=== PATIENT | male | born 1970 ===

== ENCOUNTER 2021-06-09 14:28 | Emergency (ER) | payer BC ==
[2021-06-09] MEDS ORDERED: Sodium Chloride 0.9% 20 ML SDV IV PRN (14:35)
[2021-06-09] MEDS ORDERED: Sodium Chloride 0.9% 10 ML Syringe FLUSH PRN (14:35)
[2021-06-09] MEDS ORDERED: Ondansetron 4 MG/2 ML SDV IVPUSH ONE (14:35)
[2021-06-09] MEDS ORDERED: Sodium Chloride 0.9% 2.5 ML Syringe FLUSH PRN (14:35)
[2021-06-09] MEDS ORDERED: Meclizine 25 MG Tab PO ONE (14:45)
--- NOTE | 2021-06-09 14:45 | EDM.PDOC ---
ED HPI GENERAL MEDICAL PROBLEM - General Chief Complaint: Syncope Stated Complaint: EMS Time Seen by Provider: 06/09/21 14:35 - History of Present Illness INITIAL COMMENTS - FREE TEXT/NARRATIVE: HISTORY AND PHYSICAL: History of present illness: This is a 50-year-old gentleman with a history significant for parathyroid disease, hypoparathyroidism who presents to the ER today secondary to vertigo and dizziness that started approximately 30 minutes prior to arrival. Patient presented to the ED as a stroke alert. Patient reports he has had episodes of vertigo in the past but today's episode was much more severe than usual. Patient denies any weakness to his upper or lower extremities. Patient has any double vision or blurred vision. Patient reports that he did have a short episode where he thought his words were slightly slurred but that was extremely transient and currently resolved. Patient denies any facial drooping or asymmetry. Patient denies any paresthesias to his upper or lower extremities. Patient reports nausea and vomiting secondary to dizziness when he opens his eyes. Patient reports he did eat a brownie prior to arrival to the ED as he was vomiting up some dark brown material upon arrival. Patient denies any recent fevers, shakes, chills, diarrhea, dysuria, frequency, urgency. Patient has any chest pain or abdominal pain. Patient has any hematuria. Patient denies any melena or bright red blood per rectum. Patient reports has been tolerating p.o. solids and liquids well. Patient reports prior to this episode he was in his usual state of health. Review of systems: As per history of present illness and below otherwise all systems reviewed and negative. Past medical history: As per history of present illness and as reviewed below otherwise noncontributory. Surgical history: As per history of present illness and as reviewed below otherwise noncontributory. Social history: No reported history of drug abuse. Family history: As per history of present illness and as reviewed below otherwise noncontributory. Physical exam: This patient was seen and evaluated during the 2019 SARS-CoV-2 novel coronavirus pandemic period. Community viral transmission is ongoing at time of this encounter and the emergency department is operating under pandemic response procedures. Constitutional: Patient is oriented to person, place, and time. Appears well- developed and well-nourished. No distress. HEENT: Moist mucous membranes Head: Normocephalic and atraumatic Eyes: Right eye exhibits no discharge. Left eye exhibits no discharge. No scleral icterus Neck: Normal range of motion. No tracheal deviation present. Cardiovascular: Normal rate and regular rhythm. Pulmonary: Effort normal, no respiratory distress. Abdominal: No distention Musculoskeletal: Normal range of motion Neuro: A&Ox3. Cranial nerves II-XII grossly intact, 5/5 strength to bilateral upper and lower extremities, sensation intact to bilateral upper and lower extremities, no nystagmus, PERRLA, EOMI, normal speech, proprioception intact to bilateral lower extremities, normal finger to nose test, gait normal skin: [place], warm and dry. Psychiatric: Normal mood and affect. Behavior is normal. Judgment and thought content normal. Nursing note and vital signs have been reviewed 1a) Level of consciousness: 0=alert; 1=not alert but arousable by minor stimulation; 2=not alert: requires repeated stimulation to attend or is obtunded and requires strong or painful stimulation to make movements; 3=responds only with reflex motor or autonomic effects or totally unresponsive, flaccid and a reflexic SCORE 00 1b) LOC questions ("what month is it?", "how old are you?"): 0=answers both correctly; 1=answers one correctly; 2=answers neither correctly SCORE 0 1c) LOC commands (command patient to "open and close your eyes. Melter Operator and release your hand.): 0=performs both correctly; 1=performs one correctly; 2=performs neither correctly SCORE 0 2) Best gaze ("follow my finger"): 0=normal; 1=partial gaze palsy; 2=forced deviation or total gaze paresis SCORE 0 3) Visual schrader (use confrontation, finger counting, or visual threat. confront upper/lower quadrants of visual field): 0=no visual loss; 1=partial hemianopsia; 2=complete hemianopsia; 3=bilateral hemianopsia SCORE 0 4) Facial palsy (by words or pantomime, encourage patient to: "Show me your teeth. Raise your eyebrows. Close your eyes."): 0=normal symmetrical movement; 1=minor paralysis (flattened nasolabial fold, asymmetry on smiling); 2=partial paralysis (lower face); 3=complete paralysis SCORE 0 5) Arm motor (alternately position patient's arms. extend each arm with palms down (90 degrees if sitting, 45 degrees if supine) - test each arm in turn and start with nonparetic arm first): 0=no drift; 1=drift (arm falls before 10 seconds); 2=some effort vs. gravity; 3=no effort vs. gravity; 4=no movement; UN (untestable)=amputation or joint fusion SCORE 0 6) Leg motor (alternately position patient's legs. extend each leg (30 degrees, always while supine) - test nonparetic leg first): 0=no drift; 1=drift (leg falls before 5 seconds); 2=some effort vs. gravity; 3= no effort vs. gravity; 4=no movement; UN=amputation or joint fusion SCORE 0 7) Limb ataxia (ask patient (eyes open) to: "touch your finger to your nose. touch your heel to your alcaraz"): 0=absent; 1=present in one limb; 2=present in two or more limbs; UN=amputation or joint fusion SCORE 0 8) Sensory (test as many body parts as possible (arms and not hands, legs, trunk, face) for sensation using pinprick or noxious stimuli (in the obtunded or aphasic patient)): 0=normal; 1=mild to moderate sensory loss; 2=severe to total sensory loss SCORE 0 9) Best language (using pictures and a sentence list, ask patient to "describe what you see in this picture. Name the items in this picture. Read these sentences"): 0=no aphasia, 1=mild to moderate aphasia; 2=severe aphasia; 3=mute, global aphasia SCORE 0 10) Dysarthria (using a simple word list, ask patient to: "read these words" or "repeat these words"): 0=normal articulation; 1=mild to moderate dysarthria; 2=severe dysarthria; UN=intubated or other physical barrier SCORE 0 11) Extinction and inattention (sufficient information to determine these scores may have been obtained during the prior testing): 0=no abnormality; 1=visual, tactile, auditory, spatial or personal inattention; 2=profound reymundo-inattention or extinction to more than one modality SCORE 0 TOTAL NIHSS Score: 0 Diagnostics: CT head: No acute bleed CTA head and neck: No evidence of arterial occlusion or dissection Therapeutics: Benadryl/meclizine/NSS/Zofran Assessment and plan: 50-year-old gentleman who presents ER today secondary to vertigo. Patient is clinically hemodynamically stable upon arrival to the ED was having episodes of emesis of dark brown material which she reports he believes is redness of the brownie that he ate prior to arrival to the ER. Patient's neuro exam is unremarkable. Patient's NIH stroke scale is 0. Patient has no nystagmus and normal cerebellar exam at this time. Patient has been given Zofran for his nausea and will be given IV fluids as well as meclizine and reevaluated. 4:54 PM: Patient has been reevaluated by me multiple times throughout his ER visit. Patient reports he feels significantly improved in the ED has been resting comfortably. Patient reports that his dizziness has completely resolved after sleeping in the ED. Patient has been able to get up out of bed on his own and utilize to facilities. Patient reports no vertigo or unstable gait. Paris valdes's neuro exam in the ED currently is normal. Patient has a normal [id number], rapid alternating motion, heel-to-toe walking, normal Romberg, no nystagmus. Patient was ambulated in the ED and he appears to be walking with stable gait and feels very comfortable with the plan to be discharged home at this time. At this time I do not believe that the patient's symptoms were consistent with a cerebellar infarct as a resolved shortly after receiving the meclizine, Benadryl and sleep. Although the possibility of a cerebellar TIA is unlikely, patient will get started on an aspirin a day and will be discharged home with instructions take a baby aspirin daily in order to prevent any further strokes and will get started on meclizine 50 mg 3 times a day as needed for vertigo. Patient will be instructed to follow-up with primary care physician for further evaluation. Reassessment at the time of disposition demonstrates that the patient is in no acute distress. The patient has remained stable throughout the entire ED visit and is without objective evidence for acute process requiring urgent intervention or hospitalization. The patient is stable for discharge, counseling is provided as documented above, discussed symptomatic treatment and specific conditions for return. I have spoken with the patient/caregiver and discussed todays findings, in addition to providing specific details for the plan of care. Questions are answered and there is agreement with the plan. Definitive disposition and diagnosis as appropriate pending reevaluation and review of above. - Related Data Allergies Allergy/AdvReac Type Severity Reaction Status Date / Time No Known Allergies Allergy Verified 06/09/21 14:31 Home Meds: Home Meds Levothyroxine Sodium PO ACBED 11/14/13 [History] Meclizine HCl 25 mg PO TID PRN #20 tablet 06/09/21 [Rx] Past Medical History - Past Health History Medical/Surgical History: Denies Medical/Surgical History ED ROS GENERAL - Review of Systems Review Of Systems: See Below ED EXAM, GENERAL - Physical Exam Exam: See Below #1 Interpretation EKG Date: 06/09/21 Time: : EKG Interpretation Comments: EKG: As interpreted by ER physician: [place]: Nonspecific ST-T wave abnormalities Normal axis No evidence of ST elevation TX Normal sinus rhythm heart rate of 72 Course - Vital Signs Last Recorded V/S: Last Vital Signs Temp 96.2 F L 06/09/21 14:32 Pulse 69 06/09/21 15:55 Resp 17 06/09/21 15:55 BP 130/77 06/09/21 15:55 Pulse Ox 97 06/09/21 15:55 - Orders/Labs/Meds Orders: Active Orders 24 hr Category Date Time Status Assess Neurological Status [RC] ASDIRECTED Care 06/09/21 14:36 Active Bedrest [RC] ASDIRECTED Care 06/09/21 14:36 Active Blood Glucose Check, Bedside [RC] STAT Care 06/09/21 14:36 Active Cardiac Monitoring [RC] . DIRECTED Care 06/09/21 14:36 Active EKG Documentation Completion [RC] STAT Care 06/09/21 14:36 Active Height and Weight [RC] UPON Care 06/09/21 14:36 Active Initiate Acute Stroke Protocol [RC] STAT Care 06/09/21 14:36 Active NIH Stroke Scale [RC] ASDIRECTED Care 06/09/21 14:36 Active Oxygen Therapy [RC] ASDIRECTED Care 06/09/21 14:36 Active Stroke Education, General [RC] Click to Edit Care 06/09/21 14:36 Active Vital Signs [RC] Q15M Care 06/09/21 14:36 Active UA W/MICROSCOPIC [URIN] Stat Lab 06/09/21 16:30 Results Sodium Chloride 0.9% [Normal Saline] Med 06/09/21 14:35 Active 10 ml IV ASDIRECTED PRN Sodium Chloride 0.9% [Saline Flush] Med 06/09/21 14:35 Active 10 ml FLUSH ASDIRECTED PRN Sodium Chloride 0.9% [Saline Flush] Med 06/09/21 14:35 Active 2.5 ml FLUSH ASDIRECTED PRN Peripheral IV Insertion Adult [OM.PC] Stat Ot 06/09/21 14:36 Ordered Peripheral IV Insertion Adult [OM.PC] Stat Ot 06/09/21 14:36 Ordered Medication Orders Sodium Chloride (Sodium Chloride 0.9% 10 Ml Syringe) 10 ml FLUSH ASDIRECTED PRN PRN Reason: Keep Vein Open Last Admin: 06/09/21 15:12 Dose: 10 ml Documented by: AURORA Sodium Chloride (Sodium Chloride 0.9% 2.5 Ml Syringe) 2.5 ml FLUSH ASDIRECTED PRN PRN Reason: Keep Vein Open Last Admin: 06/09/21 15:12 Dose: 2.5 ml Documented by: AURORA Sodium Chloride (Sodium Chloride 0.9% 20 Ml Sdv) 10 ml IV ASDIRECTED PRN PRN Reason: IV Use Last Admin: 06/09/21 15:14 Dose: 10 ml Documented by: AURORA Labs: Laboratory Tests 06/09/21 06/09/21 06/09/21 Range/Units 14:37 14:37 14:37 WBC 9.58 (4.0-11.0) K/uL RBC 4.94 (4.50-5.90) M/uL Hgb 16.1 (13.0-17.0) g/dL Hct 44.7 (38.0-50.0) % MCV 90.5 (80.0-98.0) fL MCH 32.6 H (27.0-32.0) pg MCHC 36.0 (31.0-37.0) g/dL RDW Std Deviation 41.9 (28.0-62.0) fl RDW Coeff of Ingrid 13 (11.0-15.0) % Plt Count 363 (150-400) K/uL MPV 9.70 (7.40-12.00) fL Neut % (Auto) 62.3 (48.0-80.0) % Lymph % (Auto) 26.1 (16.0-40.0) % [place] % (Auto) 8.9 (0.0-15.0) % Eos % (Auto) 2.3 (0.0-7.0) % Baso % (Auto) 0.4 (0.0-1.5) % Neut # (Auto) 6.0 H (1.4-5.7) K/uL Lymph # (Auto) 2.5 H (0.6-2.4) K/uL Crosby # (Auto) 0.9 H (0.0-0.8) K/uL Eos # (Auto) 0.2 (0.0-0.7) K/uL Baso # (Auto) 0.0 (0.0-0.1) K/uL Nucleated RBC % 0.0 /100WBC Nucleated RBCs # 0 K/uL INR 1.00 APTT 23.5 (18.6-31.3) SEC Sodium 141 (136-148) mmol/L Potassium 3.0 L (3.5-5.1) mmol/L Chloride 102 (98-107) mmol/L Carbon Dioxide 26.5 (21.0-32.0) mmol/L BUN 15 (7.0-18.0) mg/dL Creatinine 0.9 (0.8-1.3) mg/dL Est Cr Clr Drug Dosing 112.90 mL/min Estimated GFR (MDRD) > 60.0 ml/min Glucose 116 H (74-106) mg/dL Calcium 8.5 (8.5-10.1) mg/dL Total Bilirubin 1.0 (0.2-1.0) mg/dL AST 23 (15-37) IU/L ALT 37 (14-63) IU/L Alkaline Phosphatase 93 (46-116) U/L Troponin I < 0.050 (0.000-0.056) ng/mL Total Protein 7.8 (6.4-8.2) g/dL Albumin 3.5 (3.4-5.0) g/dL Globulin 4.3 H (2.6-4.0) g/dL Albumin/Globulin Ratio 0.8 L (0.9-1.6) TSH, Ultra Sensitive 0.69 (0.36-3.74) uIU/mL Urine Color Urine Appearance Urine pH (5.0-8.0) Ur Specific [place] (1.001-1.035) Urine Protein (NEGATIVE) mg/dL Urine Glucose (UA) (NEGATIVE) mg/dL Urine Ketones (NEGATIVE) mg/dL Urine Occult Blood (NEGATIVE) Urine Nitrite (NEGATIVE) Urine Bilirubin (NEGATIVE) Urine Urobilinogen (<2.0) EU/dL Ur Leukocyte Esterase (NEGATIVE) SARS-CoV-2 RNA (BHANU) (NEGATIVE) 06/09/21 06/09/21 Range/Units 15:19 16:30 WBC (4.0-11.0) K/uL RBC (4.50-5.90) M/uL Hgb (13.0-17.0) g/dL Hct (38.0-50.0) % MCV (80.0-98.0) fL MCH (27.0-32.0) pg MCHC (31.0-37.0) g/dL RDW Std Deviation (28.0-62.0) fl RDW Coeff of Ingrid (11.0-15.0) % Plt Count (150-400) K/uL MPV (7.40-12.00) fL Neut % (Auto) (48.0-80.0) % Lymph % (Auto) (16.0-40.0) % Cros[place] % (Auto) (0.0-15.0) % Eos % (Auto) (0.0-7.0) % Baso % (Auto) (0.0-1.5) % Neut # (Auto) (1.4-5.7) K/uL Lymph # (Auto) (0.6-2.4) K/uL [place] # (Auto) (0.0-0.8) K/uL Eos # (Auto) (0.0-0.7) K/uL Baso # (Auto) (0.0-0.1) K/uL Nucleated RBC % /100WBC Nucleated RBCs # K/uL INR APTT (18.6-31.3) SEC Sodium (136-148) mmol/L Potassium (3.5-5.1) mmol/L Chloride (98-107) mmol/L Carbon Dioxide (21.0-32.0) mmol/L BUN (7.0-18.0) mg/dL Creatinine (0.8-1.3) mg/dL Est Cr Clr Drug Dosing mL/min Estimated GFR (MDRD) ml/min Glucose (74-106) mg/dL Calcium (8.5-10.1) mg/dL Total Bilirubin (0.2-1.0) mg/dL AST (15-37) IU/L ALT (14-63) IU/L Alkaline Phosphatase (46-116) U/L Troponin I (0.000-0.056) ng/mL Total Protein (6.4-8.2) g/dL Albumin (3.4-5.0) g/dL Globulin (2.6-4.0) g/dL Albumin/Globulin Ratio (0.9-1.6) TSH, Ultra Sensitive (0.36-3.74) uIU/mL Urine Color YELLOW Urine Appearance CLEAR Urine pH 6.5 (5.0-8.0) Ur Specific [place] 1.020 (1.001-1.035) Urine Protein TRACE H (NEGATIVE) mg/dL Urine Glucose (UA) NEGATIVE (NEGATIVE) mg/dL Urine Ketones NEGATIVE (NEGATIVE) mg/dL Urine Occult Blood NEGATIVE (NEGATIVE) Urine Nitrite NEGATIVE (NEGATIVE) Urine Bilirubin NEGATIVE (NEGATIVE) Urine Urobilinogen 0.2 (<2.0) EU/dL Ur Leukocyte Esterase NEGATIVE (NEGATIVE) SARS-CoV-2 RNA (BHANU) NEGATIVE (NEGATIVE) Meds: Medications Generic Name Dose Route Start Last Admin Trade Name Freq PRN Reason Stop Dose Admin Sodium Chloride 10 ml 06/09/21 14:35 06/09/21 15:12 Sodium Chloride 0.9% 10 Ml Syringe FLUSH 10 ml ASDIRECTED PRN Administration Keep Vein Open Sodium Chloride 2.5 ml 06/09/21 14:35 06/09/21 15:12 Sodium Chloride 0.9% 2.5 Ml Syringe FLUSH 2.5 ml ASDIRECTED PRN Administration Keep Vein Open Sodium Chloride 10 ml 06/09/21 14:35 06/09/21 15:14 Sodium Chloride 0.9% 20 Ml Sdv IV 10 ml ASDIRECTED PRN Administration IV Use Discontinued Medications Generic Name Dose Route Start Last Admin Trade Name Freq PRN Reason Stop Dose Admin Diphenhydramine HCl 50 mg 06/09/21 14:46 06/09/21 15:06 Diphenhydramine 50 Mg/Ml Sdv IVPUSH 06/09/21 14:47 50 mg ONETIME ONE Administration Sodium Chloride 1,000 mls @ 999 mls/hr 06/09/21 15:13 06/09/21 15:14 Normal Saline IV 06/09/21 16:13 999 mls/hr .Bolus ONE Administration Iopamidol 100 ml 06/09/21 15:04 06/09/21 15:05 Iopamidol 755 Mg/Ml 500 Ml Multipack Bottle IVPUSH 06/09/21 15:05 100 ml ONETIME STA Administration Meclizine HCl 50 mg 06/09/21 14:45 06/09/21 15:06 Meclizine 25 Mg Tab PO 06/09/21 14:46 50 mg ONETIME ONE Administration Ondansetron HCl 4 mg 06/09/21 14:35 06/09/21 15:06 Ondansetron 4 Mg/2 Ml Sdv IVPUSH 06/09/21 14:36 4 mg ONETIME ONE Administration Departure - Departure Time of Disposition: 16:57 Disposition: Home, Self-Care 01 Condition: Good Clinical Impression: Vertigo, Vomiting - Discharge Information Instructions: Vertigo, [id number] Forms: ED Department Discharge Additional Instructions: You were seen and evaluated in ER today secondary to acute onset of vertigo. The evaluation that was performed in the ED makes it extremely unlikely that this was secondary to a stroke but more the likely secondary to vertigo from an inner ear/vestibular issue. You were given meclizine here in the ED to assist with the symptoms and you will be discharged with a prescription for meclizine to take as needed if you should have further episodes of vertigo. Given your risk factors, I recommend that you take an aspirin 81 mg daily to prevent str okes and heart disease. You need to talk to your doctor about being placed on a weight loss program. Please return to the ER if you develop any new or concerning symptoms. The following information is given to patients seen in the emergency department who are being discharged to home. This information is to outline your options for follow-up care. We provide all patients seen in our emergency department with a follow-up referral. The need for follow-up, as well as the timing and circumstances, are variable depending upon the specifics of your emergency department visit. If you don't have a primary care physician on staff, we will provide you with a referral. We always advise you to contact your personal physician following an emergency department visit to inform them of the circumstance of the visit and for follow-up with them and/or the need for any referrals to a consulting specialist. The emergency department will also refer you to a specialist when appropriate. This referral assures that you have the opportunity for follow-up care with a specialist. All of these measure are taken in an effort to provide you with optimal care, which includes your follow-up. Under all circumstances we always encourage you to contact your private physician who remains a resource for coordinating your care. When calling for follow-up care, please make the office aware that this follow-up is from your recent emergency room visit. If for any reason you are refused follow-up, please contact the [facility] Emergency Department at and asked to speak to the emergency department charge nurse. [facility] - Primary Care [address] [place] [address] [id number] [address] [id number] Sepsis Event Note (ED) - Focused Exam Vital Signs: Vital Signs Temp Pulse Resp BP Pulse Ox 06/09/21 15:55 69 17 130/77 97 06/09/21 15:08 66 17 166/77 H 92 L 06/09/21 14:32 96.2 F L 95 20 128/79 98 - My Orders Last 24 Hours: My Active Orders 06/09/21 14:35 Sodium Chloride 0.9% [Normal Saline] 10 ml IV ASDIRECTED PRN Sodium Chloride 0.9% [Saline Flush] 10 ml FLUSH ASDIRECTED PRN Sodium Chloride 0.9% [Saline Flush] 2.5 ml FLUSH ASDIRECTED PRN 06/09/21 14:36 Assess Neurological Status [RC] ASDIRECTED Bedrest [RC] ASDIRECTED Blood Glucose Check, Bedside [RC] STAT Cardiac Monitoring [RC] . DIRECTED EKG Documentation Completion [RC] STAT Height and Weight [RC] UPON Initiate Acute Stroke Protocol [RC] STAT NIH Stroke Scale [RC] ASDIRECTED Oxygen Therapy [RC] ASDIRECTED Stroke Education, General [RC] Click to Edit Vital Signs [RC] Q15M Peripheral IV Insertion Adult [OM.PC] Stat Peripheral IV Insertion Adult [OM.PC] Stat 06/09/21 16:30 UA W/MICROSCOPIC [URIN] Stat - Assessment/Plan Last 24 Hours: My Active Orders 06/09/21 14:35 Sodium Chloride 0.9% [Normal Saline] 10 ml IV ASDIRECTED PRN Sodium Chloride 0.9% [Saline Flush] 10 ml FLUSH ASDIRECTED PRN Sodium Chloride 0.9% [Saline Flush] 2.5 ml FLUSH ASDIRECTED PRN 06/09/21 14:36 Assess Neurological Status [RC] ASDIRECTED Bedrest [RC] ASDIRECTED Blood Glucose Check, Bedside [RC] STAT Cardiac Monitoring [RC] . DIRECTED EKG Documentation Completion [RC] STAT Height and Weight [RC] UPON Initiate Acute Stroke Protocol [RC] STAT NIH Stroke Scale [RC] ASDIRECTED Oxygen Therapy [RC] ASDIRECTED Stroke Education, General [RC] Click to Edit Vital Signs [RC] Q15M Peripheral IV Insertion Adult [OM.PC] Stat Peripheral IV Insertion Adult [OM.PC] Stat 06/09/21 16:30 UA W/MICROSCOPIC [URIN] Stat
[2021-06-09] MEDS ORDERED: diphenhydrAMINE 50 MG/ML SDV IVPUSH ONE (14:46)
[2021-06-09] MEDS ORDERED: Iopamidol 755 MG/ML 500 ML Multipack Bottle IVPUSH STA (15:04)
[2021-06-09] MEDS ORDERED: Sodium Chloride 0.9% 1,000 ML IV ONE (15:13)
[2021-06-09 15:25] LABS: BLOOD UREA NITROGEN,BUN 15 mg/dL (7.0-18.0); CARBON DIOXIDE,CO2 26.5 mmol/L (21.0-32.0); CHLORIDE,CL 102 mmol/L (98-107); GLUCOSE RANDOM 116 mg/dL (74-106); SODIUM,NA 141 mmol/L (136-148)
--- NOTE | 2021-06-09 15:32 | CR ---
Indication: Acute stroke Technique: Chest 1 view Comparison: None Findings/Impression: Prominent cardiac size. Normal pulmonary vasculature. No focal infiltrate, effusion or pneumothorax. No acute osseous abnormality. Dictated by Dasia Wright MD @ 06/09/2021 3:30:09 PM (Electronically Signed)
--- NOTE | 2021-06-09 15:32 | CT ---
DATE: 06/09/2021. CLINICAL HISTORY: Acute neurological deficit. TECHNIQUE: Standard helical CT image acquisition of the brain was performed. COMPARISON: None available. FINDINGS: There is no intracranial hemorrhage. No extra-axial collection, mass effect, or midline shift. Ponce-white matter differentiation is preserved. Mild age advanced generalized parenchymal volume loss. There is a delphine cisterna magnum. There is an empty and mildly expanded sella. The calvarium is unremarkable. The orbits are unremarkable. The paranasal sinuses are unremarkable. The mastoid air cells are unremarkable. The soft tissues are unremarkable. IMPRESSION: 1. No CT evidence of acute intracranial abnormality. 2. Mild age advanced generalized parenchymal volume loss. 3. Empty and mildly expanded sella. This is nonspecific but can be seen in the setting of underlying idiopathic intracranial hypertension. Please note that all CT scans at this facility use dose modulation, iterative reconstruction, and/or weight-based dosing when appropriate to reduce radiation dose to as low as reasonably achievable. Dictated by Drake Lopez MD @ 06/09/2021 3:31:31 PM (Electronically Signed)
--- NOTE | 2021-06-09 15:42 | CT ---
DATE: 06/09/2021. CLINICAL HISTORY: Acute neurological deficit. TECHNIQUE: Standard helical CT image acquisition through the head and neck was performed after intravenous contrast bolus enhancement. Multiplanar reconstructed images were performed and interpreted. COMPARISON: None available. FINDINGS: The origins of the great vessels from the aortic arch are patent. The origins of the right and left vertebral arteries are patent. The common carotid arteries are patent. No significant luminal stenoses of the proximal internal carotid arteries by NASCET criteria. The more distal cervical segments of the internal carotid arteries are patent. The cervical segments of the vertebral arteries are patent. No intracranial proximal large vessel occlusion or flow-limiting luminal stenosis. The visualized lung apices are unremarkable. The thyroid gland is unremarkable. The cervical spine is unremarkable. IMPRESSION: 1. No intracranial proximal large vessel occlusion or flow-limiting luminal stenosis. 2. Patent cervical arterial vasculature without hemodynamically significant luminal stenosis. Please note that all CT scans at this facility use dose modulation, iterative reconstruction, and/or weight-based dosing when appropriate to reduce radiation dose to as low as reasonably achievable. Dictated by Drake Lopez MD @ 06/09/2021 3:40:30 PM (Electronically Signed)
[2021-06-09] MEDS ORDERED: Aspirin 81 MG Tab.Chew PO ONE (16:56)
== END 2021-06-09 17:21 | disposition home or self-care (01) ==
LOC: MW.ED 14:28
DX: R42 Dizziness and giddiness (principal); R11.10 Vomiting, unspecified; Z79.899 Other long term (current) drug therapy; Z20.822 Contact with and (suspected) exposure to COVID-19
CPT/HCPCS: 36415; 70450; 70496; 70498; 71045; 80053; 81001; 84443; 84484; 85025; 85610; 85730; 87635; 96374; 96375; 99285; A9270; J1200; J2405; J7030; Q9967; U0002

== ENCOUNTER 2021-06-12 08:50 | Observation (INO) | payer BC ==
[2021-06-12] MEDS ORDERED: diphenhydrAMINE 50 MG/ML SDV IVPUSH ONE (09:11)
--- NOTE | 2021-06-12 09:18 | EDM.PDOC ---
ED HPI GENERAL MEDICAL PROBLEM - General Chief Complaint: Syncope Stated Complaint: VERTIGO Time Seen by Provider: 06/12/21 08:51 Source of Information: Reports: Patient History Limitations: Reports: No Limitations - History of Present Illness INITIAL COMMENTS - FREE TEXT/NARRATIVE: Patient is a 50-year-old male with a history of hypothyroidism presents today for dizziness. Patient was seen here few days ago for a similar region of dizziness. At that time he had a CT head which also CTA head and neck. Patient states that he was given meclizine and made him feel better however this morning he had dizziness and cannot take the meclizine due to the vomiting. He states feels like the room was spinning and it gets worse when he opens his eyes. States his niece is still to get better. He denies any other neurological symptoms has no other complaints. - Related Data Allergies Allergy/AdvReac Type Severity Reaction Status Date / Time No Known Allergies Allergy Verified 06/12/21 08:56 Home Meds: Home Meds Levothyroxine Sodium 150 mg PO DAILY 11/14/13 [History] Meclizine HCl 25 mg PO TID PRN #20 tablet 06/09/21 [Rx] Past Medical History - Past Health History Medical/Surgical History: Denies Medical/Surgical History Cardiovascular History: Reports: Hypertension Neurological History: Reports: Vertigo Other Neuro History: "vertigo" Endocrine/Metabolic History: Reports: Hypothyroidism Social & Family History - Family History Family Medical History: No Pertinent Family History - Tobacco Use Tobacco Use Status *Q: Never Tobacco User Second Hand Smoke Exposure: No - Caffeine Use Caffeine Use: Reports: Coffee, Energy Drinks, Soda - Recreational Drug Use Recreational Drug Use: No ED ROS GENERAL - Review of Systems Review Of Systems: See Below Constitutional: Reports: No Symptoms HEENT: Reports: No Symptoms Respiratory: Reports: No Symptoms Cardiovascular: Reports: No Symptoms Endocrine: Reports: No Symptoms GI/Abdominal: Reports: No Symptoms : Reports: No Symptoms Musculoskeletal: Reports: No Symptoms Skin: Reports: No Symptoms Neurological: Reports: Dizziness Psychiatric: Reports: No Symptoms Hematologic/Lymphatic: Reports: No Symptoms Immunologic: Reports: No Symptoms ED EXAM, NEURO - Physical Exam Exam: See Below Exam Limited By: No Limitations General Appearance: Alert, WD/WN, No Apparent Distress Eye Exam: Bilateral Eye: EOMI, PERRL Ears: Normal External Exam Nose: Normal Inspection Neck: Normal Inspection, Supple Respiratory/Chest: No Respiratory Distress Cardiovascular: Normal Peripheral Pulses, Regular Rate, Rhythm GI/Abdominal: Normal Bowel Sounds, Soft, Non-Tender Neurological: Alert, CN II-XII Intact, No Motor/Sensory Deficits, Oriented x 3 Extremities: Normal Inspection, Normal Range of Motion #1 Interpretation EKG Date: 06/12/21 Time: 08:53 Rhythm: Other (sinus jane) Rate (Beats/Min): 59 ST-T: Normal Course - Vital Signs Last Recorded V/S: Last Vital Signs Temp 97.1 F 06/12/21 08:56 Pulse 57 L 06/12/21 10:40 Resp 16 06/12/21 10:40 BP 163/84 H 06/12/21 10:40 Pulse Ox 93 L 06/12/21 10:40 - Orders/Labs/Meds Orders: Active Orders 24 hr Category Date Time Status Patient Status [ADT] Routine ADT 06/12/21 11:11 Ordered Labs: Laboratory Tests 06/12/21 06/12/21 Range/Units 08:54 08:54 WBC 6.41 (4.0-11.0) K/uL RBC 4.70 (4.50-5.90) M/uL Hgb 15.2 (13.0-17.0) g/dL Hct 42.5 (38.0-50.0) % MCV 90.4 (80.0-98.0) fL MCH 32.3 H (27.0-32.0) pg MCHC 35.8 (31.0-37.0) g/dL RDW Std Deviation 41.7 (28.0-62.0) fl RDW Coeff of Ingrid 13 (11.0-15.0) % Plt Count 317 (150-400) K/uL MPV 9.60 (7.40-12.00) fL Neut % (Auto) 63.9 (48.0-80.0) % Lymph % (Auto) 24.2 (16.0-40.0) % [place] % (Auto) 8.4 (0.0-15.0) % Eos % (Auto) 3.0 (0.0-7.0) % Baso % (Auto) 0.5 (0.0-1.5) % Neut # (Auto) 4.1 (1.4-5.7) K/uL Lymph # (Auto) 1.6 (0.6-2.4) K/uL [place] # (Auto) 0.5 (0.0-0.8) K/uL Eos # (Auto) 0.2 (0.0-0.7) K/uL Baso # (Auto) 0.0 (0.0-0.1) K/uL Nucleated RBC % 0.0 /100WBC Nucleated RBCs # 0 K/uL Sodium 142 (136-148) mmol/L Potassium 3.2 L (3.5-5.1) mmol/L Chloride 105 (98-107) mmol/L Carbon Dioxide 27.2 (21.0-32.0) mmol/L BUN 18 (7.0-18.0) mg/dL Creatinine 0.9 (0.8-1.3) mg/dL Est Cr Clr Drug Dosing 116.06 mL/min Estimated GFR (MDRD) > 60.0 ml/min Glucose 151 H (74-106) mg/dL Calcium 8.6 (8.5-10.1) mg/dL Phosphorus 2.9 (2.6-4.7) mg/dL Magnesium 1.7 L (1.8-2.4) mg/dL Total Bilirubin 1.4 H (0.2-1.0) mg/dL AST 21 (15-37) IU/L ALT 41 (14-63) IU/L Alkaline Phosphatase 82 (46-116) U/L Total Protein 7.5 (6.4-8.2) g/dL Albumin 3.4 (3.4-5.0) g/dL Globulin 4.1 H (2.6-4.0) g/dL Albumin/Globulin Ratio 0.8 L (0.9-1.6) Meds: Medications Discontinued Medications Generic Name Dose Route Start Last Admin Trade Name Freq PRN Reason Stop Dose Admin Diazepam 2.5 mg 06/12/21 10:06 06/12/21 10:39 Diazepam 10 Mg/2 Ml Syringe IVPUSH 06/12/21 10:07 Not Given ONETIME ONE Diazepam 5 mg 06/12/21 10:07 06/12/21 10:36 Diazepam 10 Mg/2 Ml Syringe IVPUSH 06/12/21 10:08 5 mg ONETIME ONE Administration Diphenhydramine HCl 50 mg 06/12/21 09:11 06/12/21 09:14 Diphenhydramine 50 Mg/Ml Sdv IVPUSH 06/12/21 09:12 50 mg ONETIME ONE Administration - Re-Assessments/Exams Free Text/Narrative Re-Assessment/Exam: 06/12/21 11:11 Patient still remains dizzy after he was given IV Benadryl and also IV Reglan. Will admit for symptomatic dizziness. Departure - Departure Time of Disposition: 11:12 Disposition: Refer to Observation Condition: Fair Clinical Impression: Vertigo - Discharge Information *PRESCRIPTION DRUG MONITORING PROGRAM REVIEWED*: Not Applicable *COPY OF PRESCRIPTION DRUG MONITORING REPORT IN PATIENT [place]: Not Applicable Forms: ED Department Discharge Sepsis Event Note (ED) - Evaluation Sepsis Screening Result: No Definite Risk - Focused Exam Vital Signs: Vital Signs Temp Pulse Resp BP Pulse Ox Pulse Ox 06/12/21 10:40 57 L 16 163/84 H 93 L 06/12/21 10:09 55 L 157/71 H 97 06/12/21 09:22 94 L 06/12/21 08:56 97.1 F 59 L 16 162/81 H 98 - My Orders Last 24 Hours: My Active Orders 06/12/21 11:11 Patient Status [ADT] Routine - Assessment/Plan Last 24 Hours: My Active Orders 06/12/21 11:11 Patient Status [ADT] Routine Plan: Patient is a 50-year-old male history of hypothyroidism presents today for dizziness. Seems to be peripheral on exam. Patient had a work-up this past week as well. States he cannot take his meclizine when he got dizzy today doing the vomiting. We will prescribe patient antihistamine to help out with his dizziness and reassess.
[2021-06-12 09:26] LABS: BLOOD UREA NITROGEN,BUN 18 mg/dL (7.0-18.0); CARBON DIOXIDE,CO2 27.2 mmol/L (21.0-32.0); CHLORIDE,CL 105 mmol/L (98-107); GLUCOSE RANDOM 151 mg/dL (74-106); POTASSIUM,K 3.2 mmol/L (3.5-5.1); SODIUM,NA 142 mmol/L (136-148)
--- NOTE | 2021-06-12 16:33 | PCM.HP.2 ---
H&P History of Present Illness - General Date of Service: 06/12/21 Admit Problem/Dx: Admission Diagnosis/Problem Admission Diagnosis/Problem Vertigo - History of Present Illness Initial Comments - Free Text/Narative: 50 yo male with pmh of hypothyrodisme and vertigo. PAtient reports he gets dizzy every few months. He had a severe episode of vertigo three days ago was seen in the ED and sent home. He presents again with dizziness. the dizziness goes away when he lays down and closes his eyes. He feels unstead on his feet and is unable to walke. - Related Data Allergies/Adverse Reactions: Allergies Allergy/AdvReac Type Severity Reaction Status Date / Time No Known Allergies Allergy Verified 06/12/21 14:20 Home Medications: Home Meds Levothyroxine Sodium 150 mg PO DAILY 11/14/13 [History] Meclizine HCl 25 mg PO TID PRN #20 tablet 06/09/21 [Rx] Past Medical History - Past Health History Medical/Surgical History: Denies Medical/Surgical History HEENT History: Reports: Impaired Vision Other HEENT History: wears glasses Cardiovascular History: Reports: Hypertension Other Cardiovascular History: hypertension - not treated Respiratory History: Reports: Sleep Apnea Neurological History: Reports: Vertigo Other Neuro History: "vertigo" Endocrine/Metabolic History: Reports: Hypothyroidism - Infectious Disease History Infectious Disease History: Reports: Chicken Pox - Past Surgical History Endocrine Surgical History: Reports: Parathyroidectomy Social & Family History - Family History Family Medical History: No Pertinent Family History - Tobacco Use Tobacco Use Status *Q: Never Tobacco User Second Hand Smoke Exposure: No - Caffeine Use Caffeine Use: Reports: Coffee, Energy Drinks, Soda, Tea - Recreational Drug Use Recreational Drug Use: No H&P Review of Systems - Review of Systems: Review Of Systems: Comprehensive ROS is negative, except as noted in HPI. Exam - Exam Exam: See Below - Vital Signs Vital Signs: Last Vital Signs Temp 35.8 C L 06/12/21 13:20 Pulse 60 06/12/21 13:20 Resp 18 06/12/21 13:20 BP 131/77 06/12/21 13:20 Pulse Ox 92 L 06/12/21 13:20 Weight: 205.568 kg - Exam General: Alert, Oriented HEENT: Mucosa Moist & [place] Neck: Supple Lungs: Clear to Auscultation, Normal Respiratory Effort Cardiovascular: Regular Rate, Regular Rhythm GI/Abdominal Exam: Normal Bowel Sounds, Soft, Non-Tender Extremities: Non-Tender, Pedal Edema (+1) Skin: Warm, Dry, Intact Neurological: Cranial Nerves Intact, Reflexes Equal Bilateral, Strength Equal Bilateral, Normal Tone, Sensation Intact, Other (bilateral nystagymis) - Patient Data Lab Results Last 24 hrs: Laboratory Results - last 24 hr 06/12/21 06/12/21 06/12/21 Range/Units 08:54 08:54 11:18 WBC 6.41 (4.0-11.0) K/uL RBC 4.70 (4.50-5.90) M/uL Hgb 15.2 (13.0-17.0) g/dL Hct 42.5 (38.0-50.0) % MCV 90.4 (80.0-98.0) fL MCH 32.3 H (27.0-32.0) pg MCHC 35.8 (31.0-37.0) g/dL RDW Std Deviation 41.7 (28.0-62.0) fl RDW Coeff of Ingrid 13 (11.0-15.0) % Plt Count 317 (150-400) K/uL MPV 9.60 (7.40-12.00) fL Neut % (Auto) 63.9 (48.0-80.0) % Lymph % (Auto) 24.2 (16.0-40.0) % [place] % (Auto) 8.4 (0.0-15.0) % Eos % (Auto) 3.0 (0.0-7.0) % Baso % (Auto) 0.5 (0.0-1.5) % Neut # (Auto) 4.1 (1.4-5.7) K/uL Lymph # (Auto) 1.6 (0.6-2.4) K/uL [place] # (Auto) 0.5 (0.0-0.8) K/uL Eos # (Auto) 0.2 (0.0-0.7) K/uL Baso # (Auto) 0.0 (0.0-0.1) K/uL Nucleated RBC % 0.0 /100WBC Nucleated RBCs # 0 K/uL Sodium 142 (136-148) mmol/L Potassium 3.2 L (3.5-5.1) mmol/L Chloride 105 (98-107) mmol/L Carbon Dioxide 27.2 (21.0-32.0) mmol/L BUN 18 (7.0-18.0) mg/dL Creatinine 0.9 (0.8-1.3) mg/dL Est Cr Clr Drug Dosing 116.06 mL/min Estimated GFR (MDRD) > 60.0 ml/min Glucose 151 H (74-106) mg/dL Calcium 8.6 (8.5-10.1) mg/dL Phosphorus 2.9 (2.6-4.7) mg/dL Magnesium 1.7 L (1.8-2.4) mg/dL Total Bilirubin 1.4 H (0.2-1.0) mg/dL AST 21 (15-37) IU/L ALT 41 (14-63) IU/L Alkaline Phosphatase 82 (46-116) U/L Total Protein 7.5 (6.4-8.2) g/dL Albumin 3.4 (3.4-5.0) g/dL Globulin 4.1 H (2.6-4.0) g/dL Albumin/Globulin Ratio 0.8 L (0.9-1.6) SARS-CoV-2 RNA (BHANU) NEGATIVE (NEGATIVE) Result Diagrams: 06/12/21 08:54 06/12/21 08:54 Sepsis Event Note - Evaluation Sepsis Screening Result: No Definite Risk - Focused Exam Vital Signs: Vital Signs Temp Pulse Resp BP Pulse Ox Pulse Ox 06/12/21 13:20 35.8 C L 60 18 131/77 92 L 06/12/21 12:09 61 16 138/81 97 06/12/21 11:39 56 L 165/87 H 96 06/12/21 10:40 57 L 16 163/84 H 93 L 06/12/21 10:09 55 L 157/71 H 97 06/12/21 09:22 94 L 06/12/21 08:56 36.2 C 59 L 16 162/81 H 98 Problem List Initiated/Reviewed/Updated: Yes Orders Last 24hrs: Active Orders 24 hr Category Date Time Status Patient Status [ADT] Routine ADT 06/12/21 11:11 Active Antiembolic Devices [RC] PER UNIT ROUTINE Care 06/12/21 16:28 Ordered Oxygen Therapy [RC] PRN Care 06/12/21 16:28 Ordered Up ad Vielka [RC] ASDIRECTED Care 06/12/21 16:28 Ordered VTE/DVT Education [RC] PER UNIT ROUTINE Care 06/12/21 16:28 Ordered Vital Signs [RC] Q4H Care 06/12/21 16:28 Ordered PT Evaluation and Treatment [CONS] Routine Cons 06/12/21 15:42 Active Regular Diet [DIET] Diet 06/12/21 Breakfast Ordered Brain w wo Cont [MR] Routine Exams 06/12/21 15:42 Ordered Levothyroxine Med 06/13/21 09:00 Ordered 150,000 mcg PO DAILY Meclizine [Antivert] Med 06/12/21 16:26 Ordered 25 mg PO TID PRN Ondansetron [Zofran] Med 06/12/21 16:28 Ordered 4 mg IVPUSH Q4H PRN Sequential Compression Device [OM.PC] Per Unit Routine Oth 06/12/21 16:28 Ordered Resuscitation Status Routine Resus Stat 06/12/21 16:28 Ordered Medication Orders Levothyroxine Sodium (Levothyroxine 150 Mcg Tab) 150,000 mcg PO DAILY DEBI Meclizine HCl (Meclizine 25 Mg Tab) 25 mg PO TID PRN PRN Reason: Dizziness Assessment/Plan Comment:: 50 yo male admitted due to severe symptoms of vertigo liekly BPPV. Will continue to monitor and consult PT.
[2021-06-12] MEDS ORDERED: Ondansetron 4 MG/2 ML SDV IVPUSH PRN (17:00)
[2021-06-13] MEDS ORDERED: Labetalol 100 MG/20 ML MDV IVPUSH ONE (08:02)
[2021-06-13] MEDS: Levothyroxine 100 MCG Tab PO SCH (09:28)
--- NOTE | 2021-06-13 13:59 | PCM.PN ---
- General Info Date of Service: 06/13/21 - Review of Systems Systems Review Comment:: patient reports severe vertigo, feeling nauseous when standing, He was able to walk a few feet with PT. His vertigo makes it feel like the room spins 90 degrees clockwise - Patient Data Vitals - Most Recent: Last Vital Signs Temp 36.4 C 06/13/21 12:00 Pulse 59 L 06/13/21 12:00 Resp 20 06/13/21 12:00 BP 140/70 06/13/21 12:00 Pulse Ox 98 06/13/21 12:00 Weight - Most Recent: 205.568 kg I&O - Last 24 Hours: Intake & Output 06/12/21 06/13/21 06/13/21 22:59 06:59 14:59 Output Total 950 2000 Balance -950 -2000 Med Orders - Current: Current Medications Levothyroxine Sodium (Levothyroxine 100 Mcg Tab) 200 mcg PO ACBREAKFAST DEBI Last Admin: 06/13/21 09:28 Dose: 200 mcg Documented by: Meclizine HCl (Meclizine 25 Mg Tab) 25 mg PO TID PRN PRN Reason: Dizziness Ondansetron HCl (Ondansetron 4 Mg/2 Ml Sdv) 4 mg IVPUSH Q4H PRN PRN Reason: Nausea Discontinued Medications Diazepam (Diazepam 10 Mg/2 Ml Syringe) 2.5 mg IVPUSH ONETIME ONE Stop: 06/12/21 10:07 Last Admin: 06/12/21 10:39 Dose: Not Given Documented by: Diazepam (Diazepam 10 Mg/2 Ml Syringe) 5 mg IVPUSH ONETIME ONE Stop: 06/12/21 10:08 Last Admin: 06/12/21 10:36 Dose: 5 mg Documented by: Diazepam (Diazepam 10 Mg/2 Ml Syringe) 5 mg IVPUSH ONETIME ONE Stop: 06/12/21 12:02 Last Admin: 06/12/21 12:06 Dose: 5 mg Documented by: Diphenhydramine HCl (Diphenhydramine 50 Mg/Ml Sdv) 50 mg IVPUSH ONETIME ONE Stop: 06/12/21 09:12 Last Admin: 06/12/21 09:14 Dose: 50 mg Documented by: Labetalol HCl (Labetalol 100 Mg/20 Ml Mdv) 20 mg IVPUSH ONETIME ONE; Protocol Stop: 06/13/21 08:03 - Exam General: Alert, Oriented Neck: Supple Lungs: Clear to Auscultation, Normal Respiratory Effort Cardiovascular: Regular Rate, Regular Rhythm GI/Abdominal Exam: Soft, Non-Tender, No Distention Extremities: Non-Tender, No Pedal Edema Skin: Warm, Dry, Intact Neurological: No New Focal Deficit - Patient Data Result Diagrams: 06/12/21 08:54 06/12/21 08:54 Sepsis Event Note - Evaluation Sepsis Screening Result: No Definite Risk - Focused Exam Vital Signs: Vital Signs Temp Pulse Resp BP Pulse Ox 06/13/21 12:00 36.4 C 59 L 20 140/70 98 06/13/21 08:08 36.4 C 60 19 140/70 97 06/13/21 04:00 36.5 C 63 16 147/75 H 97 - Problem List & Annotations (1) Vertigo SNOMED Code(s): 123905505 Code(s): R42 - DIZZINESS AND GIDDINESS Status: Acute Current Visit: Yes - Problem List Review Problem List Initiated/Reviewed/Updated: Yes - My Orders Last 24 Hours: My Active Orders 06/12/21 14:14 Telemetry Monitoring [Cardiac Monitoring] [RC] . DIRECTED 06/12/21 15:42 PT Evaluation and Treatment [CONS] Routine 06/12/21 16:26 Meclizine [Antivert] 25 mg PO TID PRN 06/12/21 16:28 Antiembolic Devices [RC] PER UNIT ROUTINE Oxygen Therapy [RC] PRN Up ad Vielka [RC] ASDIRECTED VTE/DVT Education [RC] PER UNIT ROUTINE Vital Signs [RC] Q4H Sequential Compression Device [OM.PC] Per Unit Routine Resuscitation Status Routine 06/12/21 16:32 Cardiac Monitoring [RC] Q8H 06/12/21 16:57 CPAP Noctural Home [RT BiPAP/CPAP] [RC] ASDIRECTED 06/12/21 17:00 Ondansetron [Zofran] 4 mg IVPUSH Q4H PRN 06/13/21 07:30 Levothyroxine [Synthroid] 200 mcg PO ACBREAKFAST - Plan Plan:: 50 yo male admitted due to severe symptoms of vertigo. He has had episodic vertigo in the past so this is likely BPPV. Will continue to monitor and consult PT. antiemetics prn.
[2021-06-13] MEDS: Meclizine 25 MG Tab PO PRN ×2 (14:06→21:00)
[2021-06-14] MEDS: Levothyroxine 100 MCG Tab PO SCH (07:42)
--- NOTE | 2021-06-14 12:27 | PCM.DCSUM1 ---
Discharge Summary - Discharge Data Discharge Date: 06/14/21 Discharge Disposition: Home, Self-Care 01 Condition: Good - Referral to Home Health Primary Care Physician: Solitario Gutierrez MD - Patient Summary/Data Consults: Consultations 06/12/21 15:42 PT Evaluation and Treatment [CONS] Routine Hospital Course: 50 yo male with pmh of hypothyroidism and episodic vertigo. Patient reports he gets dizzy every few months. He had a severe episode of vertigo three days before this admission and was seen in the ED and had a unremarkable CT head. He presented again with dizziness. As he was unable to walk he was admitted for further care. Physical therapy was consulted. He did have improvement in his symptoms and today he is ready for discharge home. He is to follow up with Dr. Gutierrez next week. - Patient Instructions Diet: Regular Diet as Tolerated Activity: As Tolerated - Discharge Plan *PRESCRIPTION DRUG MONITORING PROGRAM REVIEWED*: Not Applicable *COPY OF PRESCRIPTION DRUG MONITORING REPORT IN PATIENT [place]: Not Applicable Prescriptions/Med Rec: Meclizine HCl 25 mg PO TID PRN #20 tablet PRN Reason: Dizziness Ondansetron [Zofran ODT] 4 mg PO Q6H PRN #20 tab.dis PRN Reason: nausea Home Medications: Home Meds Levothyroxine 200 mcg PO ACBREAKFAST 06/12/21 [History] Liothyronine [Cytomel] 5 mcg PO DAILY 06/12/21 [History] Meclizine HCl 25 mg PO TID PRN #20 tablet 06/14/21 [Rx] Ondansetron [Zofran ODT] 4 mg PO Q6H PRN #20 tab.dis 06/14/21 [Rx] Patient Handouts: Vertigo, [id number] Referrals: Solitario Gutierrez MD [Primary Care Provider] - 06/20/21 9:30 am - Discharge Summary/Plan Comment DC Time >30 min.: No Total # of Minutes for Discharge Time: 15 - Patient Data Vitals - Most Recent: Last Vital Signs Temp 36.6 C 06/14/21 08:00 Pulse 60 06/14/21 08:00 Resp 18 06/14/21 08:00 BP 154/88 H 06/14/21 08:00 Pulse Ox 94 L 06/14/21 08:00 Weight - Most Recent: 205.568 kg I&O - Last 24 hours: Intake & Output 06/13/21 06/14/21 06/14/21 22:59 06:59 14:59 Intake Total 500 480 Output Total 1100 600 Balance -600 -120 Lab Results - Last 24 hrs: Laboratory Results - last 24 hr 06/14/21 Range/Units 05:34 POC Glucose 100 H (70-99) mg/dL Med Orders - Current: Current Medications Levothyroxine Sodium (Levothyroxine 100 Mcg Tab) 200 mcg PO ACBREAKFAST DEBI Last Admin: 06/14/21 07:42 Dose: 200 mcg Documented by: Meclizine HCl (Meclizine 25 Mg Tab) 25 mg PO TID PRN PRN Reason: Dizziness Last Admin: 06/13/21 21:00 Dose: 25 mg Documented by: Ondansetron HCl (Ondansetron 4 Mg/2 Ml Sdv) 4 mg IVPUSH Q4H PRN PRN Reason: Nausea Discontinued Medications Diazepam (Diazepam 10 Mg/2 Ml Syringe) 2.5 mg IVPUSH ONETIME ONE Stop: 06/12/21 10:07 Last Admin: 06/12/21 10:39 Dose: Not Given Documented by: Diazepam (Diazepam 10 Mg/2 Ml Syringe) 5 mg IVPUSH ONETIME ONE Stop: 06/12/21 10:08 Last Admin: 06/12/21 10:36 Dose: 5 mg Documented by: Diazepam (Diazepam 10 Mg/2 Ml Syringe) 5 mg IVPUSH ONETIME ONE Stop: 06/12/21 12:02 Last Admin: 06/12/21 12:06 Dose: 5 mg Documented by: Diphenhydramine HCl (Diphenhydramine 50 Mg/Ml Sdv) 50 mg IVPUSH ONETIME ONE Stop: 06/12/21 09:12 Last Admin: 06/12/21 09:14 Dose: 50 mg Documented by: Labetalol HCl (Labetalol 100 Mg/20 Ml Mdv) 20 mg IVPUSH ONETIME ONE; Protocol Stop: 06/13/21 08:03
== END 2021-06-14 14:20 | disposition home or self-care (01) ==
LOC: MW.ED 08:50 → MW.MS 11:11
PROVIDERS: ADMIT Internal Medicine; ATTEND Internal Medicine
DX: R42 Dizziness and giddiness (principal); E03.9 Hypothyroidism, unspecified; I10 Essential (primary) hypertension; G47.30 Sleep apnea, unspecified; Z98.890 Other specified postprocedural states; Z20.822 Contact with and (suspected) exposure to COVID-19; Z79.890 Hormone replacement therapy; Z79.899 Other long term (current) drug therapy
CPT/HCPCS: 36415; 80053; 82947; 83735; 84100; 85025; 87635; 93005; 94660; 96374; 96375; 96376; 97110; 97112; 97161; 99285; A9270; J1200; J3360; G0378; U0002